=== PATIENT | female | born 1935 | race Caucasian/White ===

== ENCOUNTER 2018-07-10 13:46 | Inpatient (IN) | payer BC ==
[~2018-07-10] VITALS: Ht 165.1 cm; Wt 69.9 kg
[2018-07-10] MEDS ORDERED: SODIUM CHLORIDE 0.9% 500 ML IV ONE ×2 (14:38→16:00)
[2018-07-10 15:28] LABS: BASOPHILS % 0.1 % (0.0-2.0); EOSINOPHILS % 0.2 % (0.0-5.0); HEMATOCRIT. 35.3 % (36.0-48.0); HEMOGLOBIN. 11.4 g/dL (12.0-16.0); LYMPHOCYTES % 7.2 % (20.0-50.0); MEAN CORPUSCULAR HEMOGLOBIN 28.1 pg (28.0-32.0); MEAN CORPUSCULAR VOLUME 87.3 fL (81.0-99.0); MEAN PLATELET VOLUME 8.7 fl (7.4-10.4); MONOCYTES % 4.4 % (2.0-8.0); NEUTROPHILS % 88.1 % (40.0-76.0); PLATELET 231 x1000/uL (130-400); RED BLOOD CELL COUNT 4.04 mill/uL (4.2-5.4); RED CELL DISTRIBUTION WIDTH 14.3 % (11.6-14.6)
[2018-07-10 15:32] LABS: CHLORIDE 108 mEq/L (98-107)
[2018-07-10 15:37] LABS: INR 1.1; PROTHROMBIN TIME 11.4 sec (9.1-11.1)
[2018-07-10 22:25] VITALS: BP 179/66
[2018-07-10] MEDS ORDERED: CHOL200077 MT (23:30)
[2018-07-10] MEDS ORDERED: DONE5TAB33 MT (23:30)
[2018-07-10] MEDS ORDERED: THIO100C3 PO (23:30)
[2018-07-10] MEDS ORDERED: TOPI25CA2 MT (23:30)
[2018-07-10] MEDS ORDERED: MEMA10TA19 MT (23:30)
[2018-07-10] MEDS ORDERED: ZINC PO (23:30)
[2018-07-10] MEDS ORDERED: DABI75CA3 MT (23:30)
[2018-07-10] MEDS ORDERED: AMLO10TA80 MT (23:30)
[2018-07-10] MEDS ORDERED: LOVA40TA73 MT (23:30)
[2018-07-10] MEDS ORDERED: LOSA25TA12 MT (23:30)
[2018-07-11] VITALS (8 sets, daily range): BP systolic 113–148; BP diastolic 47–80
[2018-07-11] MEDS ORDERED: ACETAMINOPHEN 325MG TABLET PO PRN (01:30)
[2018-07-11 08:18] LABS: HEMATOCRIT 32.1 % (36.0-48.0); HEMOGLOBIN 10.3 g/dL (12.0-16.0); MEAN CORPUSCULAR HEMOGLOBIN 28.3 pg (28.0-32.0); MEAN CORPUSCULAR VOLUME 87.9 fL (81.0-99.0); PLATELET 198 x1000/uL (130-400); RED BLOOD CELL COUNT 3.65 mill/uL (4.2-5.4); RED CELL DISTRIBUTION WIDTH 14.4 % (11.6-14.6)
[2018-07-11] MEDS ORDERED: MEDICATION NOT ON FORMULARY EA (Dabigatran Etexilate Mesylate (Pradaxa) 1 CAP) MT SCH (09:00)
[2018-07-11] MEDS ORDERED: ZINC PO SCH (09:00)
[2018-07-11] MEDS ORDERED: MEDICATION NOT ON FORMULARY EA (Lovastatin 1 TAB) MT SCH (09:00)
[2018-07-11] MEDS: MEMANTINE HCL 10MG TABLET PO SCH ×2 (10:01→17:43)
[2018-07-11] MEDS: TOPIRAMATE 25MG TABLET PO SCH ×2 (10:01→17:43)
[2018-07-11] MEDS: LOSARTAN POTASSIUM 25 MG TABLET PO SCH (10:01)
[2018-07-11] MEDS: APIXABAN 2.5 MG TABLET PO SCH ×2 (10:01→17:43)
[2018-07-11] MEDS: AMLODIPINE 10MG TABLET PO SCH (10:01)
[2018-07-11] MEDS: SODIUM CHLORIDE 0.45% 1,000 ML IV SCH (17:49)
[2018-07-11] MEDS ORDERED: ATORVASTATIN CALCIUM 10MG TABLET PO SCH (21:00)
[2018-07-11] MEDS ORDERED: DONEPEZIL HCL 5MG TABLET PO SCH (21:00)
[2018-07-11] MEDS: PIPERACILLIN/TAZ 2.25G PREMIX 50 ML IV SCH (21:15)
[2018-07-12 00:36] VITALS: BP 131/55
[2018-07-12] MEDS: PIPERACILLIN/TAZ 2.25G PREMIX 50 ML IV SCH ×3 (03:01→16:10)
[2018-07-12 04:47] VITALS: BP 146/57
[2018-07-12] MEDS: SODIUM CHLORIDE 0.45% 1,000 ML IV SCH (06:08)
[2018-07-12 07:39] LABS: HEMOGLOBIN 11.1 g/dL (12.0-16.0); MEAN CORPUSCULAR HEMOGLOBIN 27.5 pg (28.0-32.0); MEAN CORPUSCULAR VOLUME 86.3 fL (81.0-99.0); PLATELET 219 x1000/uL (130-400); RED BLOOD CELL COUNT 4.05 mill/uL (4.2-5.4); RED CELL DISTRIBUTION WIDTH 14.5 % (11.6-14.6)
[2018-07-12 08:00] VITALS: BP 169/94
[2018-07-12 08:28] VITALS: BP 151/91
[2018-07-12] MEDS: MEMANTINE HCL 10MG TABLET PO SCH ×2 (10:03→16:18)
[2018-07-12] MEDS: TOPIRAMATE 25MG TABLET PO SCH ×2 (10:03→16:18)
[2018-07-12] MEDS: AMLODIPINE 10MG TABLET PO SCH (10:03)
[2018-07-12] MEDS: APIXABAN 2.5 MG TABLET PO SCH ×2 (10:03→16:18)
[2018-07-12] MEDS: LOSARTAN POTASSIUM 25 MG TABLET PO SCH (10:03)
[2018-07-12 11:59] VITALS: BP 124/64
[2018-07-12 16:05] VITALS: BP 121/43
== END 2018-07-12 19:40 | disposition home health service (06) | DRG 177 ==
LOC: ER 13:46 → 6WST 16:07 → EDBEDREQ 16:16 → ENRESERV 20:28
PROVIDERS: ADMIT Internal Medicine; ATTEND Internal Medicine
DX: J69.0 Pneumonitis due to inhalation of food and vomit (principal); I50.43 Acute on chronic combined systolic (congestive) and diastolic (congestive) heart failure; N17.9 Acute kidney failure, unspecified; E87.2 Acidosis; I82.511 Chronic embolism and thrombosis of right femoral vein; G90.8 Other disorders of autonomic nervous system; D64.9 Anemia, unspecified; E86.0 Dehydration; I12.9 Hypertensive chronic kidney disease with stage 1 through stage 4 chronic kidney disease, or unspecified chronic kidney disease; N18.9 Chronic kidney disease, unspecified; G20 Parkinson's disease; F02.80 Dementia in other diseases classified elsewhere, unspecified severity, without behavioral disturbance, psychotic disturbance, mood disturbance, and anxiety
CPT/HCPCS: 36415; 71045; 78582; 80048; 83605; 83880; 84484; 85027; 93005; 93306; 93880; 93970; 96360; 96361; 97162; 99285; A9558; J2543; J7030